=== PATIENT | female | born 1990 | race Caucasian/White ===

== ENCOUNTER → 2021-08-28 08:21 | Outpatient (BNVA) | payer SELFPAY | PROVIDERS: PCP Internal Medicine; Visit Provider Physician Assistant | DX: Z11.1 Encounter for screening for respiratory tuberculosis (principal) ==

== ENCOUNTER 2025-06-15 18:40 | Emergency (ER) | payer OTHER, SELFPAY ==
[2025-06-15 19:07] VITALS: BP 116/76; PULSE 86; RESP 16; TEMP 36.6; O2SAT 99; BMI 28.3
--- NOTE | 2025-06-15 19:08 | ED.NAVMDI ---
HPI - Nausea/Vomiting/Diarrhea General Chief complaint: Nausea/Vomiting/Diarrhea Stated complaint: vomiting, not feeling well Time Seen by Provider: 06/15/25 21:58 Source: patient, RN notes reviewed and old records reviewed Mode of arrival: ambulatory Limitations: no limitations History of Present Illness ED Provider: Shorty DAN Narrative: 34-year-old female presents for evaluation of abdominal pain, nausea vomiting and diarrhea. The patient reports her symptoms started about 2 weeks ago. She was seen at [facility] on 06/04/2025. She was ultimately told that she had a stomach virus and was discharged home. Her symptoms were better after IV fluids but returns. She denies any black or bloody stool. Denies any fevers, chills pain Denies any travel outside [place] pain She reports that she is not eating anything out of the ordinary pain Denies any previous abdominal surgery She reports that her pain is primarily left upper abdomen but does have pain diffusely Associated nausea: Yes Related Data Previous Rx's ?Medication ?Instructions ?Recorded nitrofurantoin 100 mg PO Q12H 5 days #10 caps 06/16/25 monohydrate/macrocrystals 100 mg capsule (Macrobid) Allergies Allergy/AdvReac Type Severity Reaction Status Date / Time latex (LATEX) Allergy Intermediate RASH Verified 06/15/25 19:09 Review of Systems Constitutional: Constitutional: Denies body ache(s), Denies chills, Denies fever(s) and Denies headache(s) Eyes: Eyes: Denies blurry vision ENT: Denies vertigo, Denies dizziness and Denies headache(s) Cardiovascular: Cardiovascular: Denies chest pain and Denies dyspnea on exertion Respiratory: Respiratory: Denies cough and Denies dyspnea on exertion Gastrointestinal: Gastrointestinal: Reports abdominal pain, Denies melena, Denies hematochezia, Reports diarrhea, Reports loose stools, Reports nausea and Reports vomiting Musculoskeletal: Musculoskeletal: Denies back pain Integumentary/Breasts: Skin/Breast: Denies rash Neurologic: Denies vertigo, Denies dizziness and Denies headache(s) [facility] Social History Social History Smoked in Last 30 Days: No Use of substances other than those prescribed or required for medical reasons: No Advance Directives: No Advance Directives Information Provided: No Do you have a plan to hurt others: No Plan Physical Exam Vital Signs: Vital Signs: Last Vital Signs Temp 97.5 F 06/15/25 22:30 Pulse 68 06/15/25 22:30 Resp 16 06/15/25 22:30 BP 112/79 06/15/25 22:30 Pulse Ox 97 06/15/25 22:30 O2 Del Method Room Air 06/15/25 22:30 BMI result Body Mass Index 28.3 Const: General: healthy appearing, comfortable, no acute distress, alert and awake Nutritional Appearance: well nourished Orientation/consciousness: patient oriented x3 HEENT: Head: Yes normocephalic and Yes atraumatic Eyes: Eyelids: Yes eyelids normal Conjunctivae: conjunctivae normal Sclerae: sclerae normal Corneas: corneas normal Pupils: Equal, round and reactive pupils present EOM: EOMs intact bilaterally Neck: Neck: Yes full ROM Resp: Effort & Inspection: normal respiratory effort, able to speak in complete sentences and not labored Cardio: Rate: regular rate Rhythm: regular rhythm GI: Inspection: No distended Palpation (GI): Soft to palpation, not firm, Tenderness to palpation present (GI) (Diffuse abdominal tenderness without rebound or guarding), no guarding and not rigid Skin: General skin exam: no rashes or lesions noted and elasticity normal Neuro: General: patient oriented x3 Cranial nerves: Yes CN's II-XII intact bilaterally, Yes Equal, round and reactive pupils present and Yes Bilaterally intact EOM present Cognition (Neuro): normal cognition Course Course Course Narrative: This is a Rapid Medical Exam performed in triage by Radha Shaw PA-C. Full HPI, ROS and PE to be performed by primary ED provider. 34-year-old female presenting to the ED c/o diffuse abdominal pain, nausea, vomiting, diarrhea x2 weeks with decreased p.o. intake. reports about 30 episodes nonbloody diarrhea. Denies recent antibiotics or travel PE: NAD, nontoxic appearing, abdomen is soft diffusely tender, no rebound or guarding Plan: Labs, UA, viral testing Reevaluation(s) Reevaluation #1: The patient is negative for C diff, she is hemodynamically stable and feels somewhat better after IV fluids and Protonix and Zofran. She is not vomiting. The patient will be discharged with Macrobid for UTI. No we will call her with any other abnormalities on the stool panel that has not run overnight. Additionally she will be discharged to follow up with GI Time: 01:09 Medications Administered Discontinued Medications Generic Name Dose Route Start Last Admin Trade Name Morena PRN Reason Stop Dose Admin Lactated Ringer's 1,000 mls @ 999 mls/hr 06/15/25 22:45 06/16/25 00:04 Lr IV 06/15/25 23:45 Infused .Q1H1M FORREST Infusion Ondansetron HCl 4 mg 06/15/25 22:42 06/15/25 22:53 Ondansetron Hcl 4 Mg/2 Ml Vial IVPUSH 06/15/25 22:43 4 mg ONCE ONE Administration Pantoprazole Sodium 40 mg 06/15/25 22:42 06/15/25 22:53 Pantoprazole Sodium 40 Mg/10 Ml Vial IVPUSH 06/15/25 22:43 40 mg ONCE ONE Administration Medical Decision Making Medical Decision Making [facility] Narrative: 34-year-old female presents for evaluation of abdominal pain, nausea vomiting diarrhea. Her symptoms have been waxing waning for the last 2 weeks. She denies any risk factors for C diff. She [place] any [place] [facility] Her vital signs are within normal limits. Her exam is reassuring. She does have some diffuse tenderness but without distention, rebound or guarding. I was able to review her workup at [facility] dated 06/04/2025 which did show entire colitis. No evidence of obstruction. The patient reports having had 30 episodes of diarrhea since last night. We will attempt to obtain a stool sample to send for evaluation[place] [id number] but otherwise her labs are quite reassuring. No electrolyte abnormalities. At the moment I do not see any indication to repeat CT imaging in his I doubt obstruction or surgical abdomen. We will treat her symptoms at any time with IV fluids, Zofran and Protonix Differential Diagnosis Differential Diagnoses: The differential diagnosis associated with the presentation includes Abdominal pain Gastroenteritis Colitis C diff colitis Campylobacter Lab Data [facility] Lab Attestation statement: I reviewed the patient's lab results. As above 06/15/25 20:47 06/15/25 20:47 Labs: Lab Results 06/15/25 06/15/25 06/16/25 Range/Units 20:47 22:37 00:07 WBC 12.4 H (4.8-10.8) X10*3/uL RBC 4.61 (4.20-5.50) X10*6/uL Hgb 13.9 (12.0-16.0) g/dl Hct 40.3 (37.0-47.0) % MCV 87.4 (80.0-98.0) fL MCH 30.2 (27.0-33.0) pg MCHC 34.5 (31.0-35.0) g/dl RDW 12.8 (11.0-16.0) % Plt Count 325 (160-400) X10*3/uL MPV 10.2 (9.4-12.3) fL Immature Gran % (Auto) 0.3 (0.0-0.4) % Neut % (Auto) 53.3 (45-73) % Lymph % (Auto) 26.4 (20-40) % [place] % (Auto) 6.8 (2-11) % Eos % (Auto) 12.9 H (0-4) % Baso % (Auto) 0.3 (0-2) % Lymph # (Auto) 3.3 (1.2-4.9) X10*3/uL [place] # (Auto) 0.8 (0.1-1.2) X10*3/uL Eos # (Auto) 1.6 H (0.0-0.4) X10*3/uL Baso # (Auto) 0.0 (0.0-0.2) X10*3/uL Abs Immat Gran (auto) 0.04 H (0.00-0.03) X10*3/uL Absolute Neuts (auto) 6.6 (2.0-8.3) x10*3/uL Absolute Nucleated RBC 0.000 (0.0-0.012) X10*3/uL Nucleated RBC % (auto) 0.0 (0.0-0.2) /100WBC Sodium 138 (135-145) mmol/L Potassium 3.5 (3.3-5.1) mmol/L Chloride 107 (96-108) mmol/L Carbon Dioxide 24 (22-29) mmol/L Anion Gap 11 L (12-20) BUN 10 (9-16) mg/dL Creatinine 0.68 (0.5-1.4) mg/dL Estim Creat Clear Calc 111.2 Estimated GFR > 60 Random Glucose 103 (60-115) mg/dL Calcium 9.2 (8.4-10.2) mg/dL Magnesium 2.0 (1.6-2.6) mg/dL Total Bilirubin 0.4 (0.0-1.0) mg/dL Direct Bilirubin 0.1 (0.0-0.5) mg/dL AST 24 (5-31) U/L ALT 33 H (0-31) U/L Alkaline Phosphatase 58 (39-117) U/L Total Protein 7.6 (6.5-8.0) g/dL Albumin 4.3 (3.5-5.0) g/dL Lipase 44 (8-78) U/L Beta HCG, Quant < 2 mIU/mL Urine Color Yellow Urine Appearance Clear Urine pH 5.5 (5.0-9.0) Ur Specific [place] 1.025 (1.005-1.025) Urine Protein Trace (Neg-Trace) mg/dL Urine Glucose (UA) Negative (Negative) mg/dL Urine Ketones Trace (Negative) mg/dL Urine Blood Trace H (Negative) Urine Nitrite Negative (Negative) Ur Leukocyte Esterase Moderate (2+) H (Negative) Urine RBC 3-5 H (0-2) /HPF Urine WBC 21-50 H (0-5) /HPF Ur Squamous Epith Cells 6-10 (0-2) /HPF Urine Bacteria 4+ (None Seen) Hyaline Casts 0-2 (0-2) /LPF Urine Test NEGATIVE (NEGATIVE) C. difficile Tox B Gene NEGATIVE (Negative) Influenza Type A (PCR) NEGATIVE (Negative) Influenza Type B (PCR) NEGATIVE (Negative) RSV RNA Qual (PCR) NEGATIVE (Negative) SARS-CoV-2 RNA (RT-PCR) NEGATIVE (Negative) Tests considered The following testing was considered but not selected: Consider CT scan of the abdomen pelvis Discharge Plan Discharge Clinical Impression: Diarrhea, Abdominal pain, UTI (urinary tract infection) Patient Disposition: Home, Self-Care Instructions: Urinary Tract Infection in Women (ED), Acute Diarrhea (ED) Additional Instructions: Given your workup in the ER today was reassuring. You did end up having a UTI. You were negative for C diff which has a tetanus infection that causes colitis pain However there was still additional stool studies pending pain We will call you if in his your positive. In the meantime hydrate well. You may use [id number] Imodium to help with further diarrhea. Follow up with the primary doctor and a referral was placed for GI Prescriptions: New nitrofurantoin monohyd/m-cryst [Macrobid] 100 mg capsule 100 mg PO Q12H 5 Days Qty: 10 0RF Rx Instructions: must administer with a meal/food Referrals: [facility] [Provider Group, Gastroenterology] Referral Note: diarrhea for 2 weeks Stand Alone Forms: Work/School Release Print Language: Greek
[2025-06-15 21:03] LABS: MANUAL DIFF FLAG NO
[2025-06-15 21:05] LABS: Hematocrit 40.3 % (37.0-47.0); Hemoglobin 13.9 g/dl (12.0-16.0); Imm Gran Abs Auto 0.04 X10*3/uL (0.00-0.03); Imm Gran Pct Auto 0.3 % (0.0-0.4); Lymphocytes Absolute Auto 3.3 X10*3/uL (1.2-4.9); Mean Corpuscular HGB Conc 34.5 g/dl (31.0-35.0); Mean Corpuscular Hemoglobin 30.2 pg (27.0-33.0); Mean Corpuscular Volume 87.4 fL (80.0-98.0); NRBC Abs Auto 0.000 X10*3/uL (0.0-0.012); NRBC Pct Auto 0.0 /100WBC (0.0-0.2); Platelet Count 325 X10*3/uL (160-400); Red Blood Count 4.61 X10*6/uL (4.20-5.50); White Blood Count 12.4 X10*3/uL (4.8-10.8)
--- OUTSIDE RECORDS SUMMARY | 2025-06-15 21:06 | XMS_ITS | Clinical Summary ---
Author Organization 175 [facility] Address [address] [place] [address] Phone Care Team Providers Care Machine Adjuster Helper Name Role Phone Dasha Araujo MD Primary Care Provider [phone] Allergies Active Allergy Reactions Criticality Noted Date Comments Latex 07/04/2020 Medications psyllium (METAMUCIL) 3.4 gram packetIndications :Constipation, unspecified constipation type Take 1 packet by mouth 1 (one) time each day. 30 packet 3 5 Active SUMAtriptan (IMITREX) 25 mg tabletIndications :Other migraine with status migrainosus, intractable Take 1 tablet (25 mg total) by mouth 1 (one) time if needed for migraine. May repeat dose once in 2 hours if no relief. Do not exceed 2 doses in 24 hours. 27 tablet 3 5 11/23/19 26 Active ondansetron (ZOFRAN) 4 mg tabletIndications :Nausea Take 1 tablet (4 mg total) by mouth every 8 (eight) hours if needed for nausea or vomiting. 20 tablet 3 5 Active methocarbamoL (ROBAXIN) 750 mg tablet Take 1 tablet (750 mg total) by mouth 4 (four) times a day for 10 days. 20 each 5 Active loratadine (CLARITIN) 10 mg tabletIndications :Seasonal allergies Take 1 tablet (10 mg total) by mouth 1 (one) time each day if needed for allergies. 30 each 2 5 07/12/19 26 Active albuterol HFA (Ventolin HFA) 90 mcg/actuation inhalerIndication s:Moderate persistent asthma, unspecified whether complicated Inhale 2 puffs by mouth every 4 (four) hours if needed for wheezing or shortness of breath. 8 g 5 5 04/13/20 26 Active cholecalciferol (Vitamin D3) 50 mcg (2,000 unit) tablet Take 1 tablet (2,000 Units total) by mouth 1 (one) time each day. 90 tablet 2 5 Active semaglutide (Wegovy) 0.5 mg/0.5 mL injection pen Inject 0.5 mg under the skin every 7 (seven) days. 2 mL 1 5 Active Active Problems Problem Noted Date Diagnosed Date PCOS (polycystic ovarian syndrome) 07/06/2020 Overview (07/10/2024): LH > FSH irreg menses Also confirmed with ultrasound Encounters Date Type Department Care Team Description 04/13/2025 10:30 AM EDT Office Visit Internal Medicine - [address] [place] [phone] Lon Delacruz NP BMI 30.0-30.9,adult (Primary Dx); Moderate obstructive sleep apnea; PCOS (polycystic ovarian syndrome); Seasonal allergies; Moderate persistent asthma, unspecified whether complicated; Healthcare maintenance 04/13/2025 Results Follow-Up Internal Medicine - [address] [place] [address] Dasha Araujo MD from Last 3 Months Surgical History Surgery Date Site/Laterality Comments OTHER SURGICAL HISTORY PROCEDURE: DENIES PREVIOUS SURGERY Medical History Medical History Date Comments History of PCOS DX:History of PC OS; COMMENT: PER PT REPORT Lumbar herniated disc 2016 DX:Lumbar herniated disc Mild intermittent asthma, uncomplicated DX:Mild intermittent asthma, uncomplicated Family History Medical History Relation Name Comments Prostate cancer Maternal Grandfather No Known Problems Mother Breast cancer Mother's side Thyroid disease Sister Relation Name Status Comments Father Alive Maternal Grandfather Mother Alive Mother's side Sister Alive Social History Tobacco Use Types Packs/Day Years Used Date Smoking Tobacco: Never Smokeless Tobacco: Never Tobacco Cessation:Counseling Given: Not Answered Alcohol Use Standard Drinks/Week Comments No 0 (1 standard drink = 0.6 oz pur e alcohol) Housing Instability Answer Date Recorde d Are you worried that in the next 2 months you may not have stable housing? No 11/15/2024 Food Access & Nutrition Answer Date Rec orded Do you have access to a vari ety of food including fruits and vegetables? Yes 11/15/2024 Access to Healthcare Answer Date Record ed Within the last 3 months, ho w many times did you visit the emergency department for your medical care? 1 11/15/2024 Health Literacy Answer Date Recorded How often do you need to hav e someone help you when you read instructions, pamphlets, or other written material from your doctor or pharmacy? Never 11/15/2024 Caregiver: How often do you need to have someone help you when you read instructions, pamphlets, or other written material from your doctor or pharmacy? Not on file 11/15/2024 Financial Risk Answer Date Recorded How hard is it for you to pa y for the very basics like food, housing, medical care, and air conditioning / heating? Not very hard 11/15/2024 Transportation Answer Date Recorded Has the lack of transportati on kept you from meetings, work, or from getting things needed for daily living? No Has the lack of transportati on kept you from medical appointments or from getting medications? No 11/15/2024 Social Isolation Answer Date Recorded How often do you feel lonely or isolated from those around you? Sometimes 11/15/2024 Food Risk Answer Date Recorded Within the past 12 months we worried whether our food would run out before we got money to buy more. Never true 11/15/2024 Within the past 12 months th e food we bought just didn't last and we didn't have money to get more. Never true 11/15/2024 Dependent Care Answer Date Recorded Do you need help finding or paying for care for your loved ones. For example, director child development center or elderly care for an older adult? No 11/15/2024 Education Answer Date Recorded Do you think completing more education or training, like finishing a GED, going to college, or learning a trade, would be helpful for you? Yes 11/15/2024 Employment and Income Answer Date Recor ded During the last four weeks, have you been actively looking for work? No 11/15/2024 Living Situation Answer Date Recorded What is your living situation? Unrecognized valu e 11/15/2024 Comments No Sex and Gender Information Value Date Recorded Sex Assigned at Female 12/08/2024 1:17 AM EDT Legal Sex Female 5:42 AM EST Gender Identity Female 12/08/2024 1:17 AM EDT Sexual Orientation Lesbian or [place] 12/08/2024 1: 17 AM EDT Last Filed Vital Signs Vital Sign Reading Time Taken Comments Blood Pressure 110/80 04/13/2025 9:38 AM EDT Pulse 83 04/13/2025 9:38 AM EDT Temperature 36.4 C (97.6 F) 04/13/2025 9:38 AM EDT Respiratory Rate 18 01/24/2025 1:37 PM EDT Oxygen Saturation 97% 04/13/2025 9:38 AM EDT Inhaled Oxygen Concentration - - Weight 77 kg (169 lb 12.8 oz) 04/13/2025 9:38 AM EDT Height 160 cm (5' 3 ) 04/13/2025 9:38 AM EDT Body Mass Index 30.08 04/13/2025 9:38 AM EDT Plan of Treatment Upcoming Encounters Date Type Department Care Team (Late st Contact Info) Description 01/25/2026 1:30 PM EDT Office Visit Internal Medicine - [address] [place] [address] Dasha Araujo MD [address] [place] [phone] Health Maintenance Due Date Last Done Comments Pneumococcal Vaccine: Pediatrics (0 to 5 Years) and At-Risk Patients (6 to 49 Years) (1 of 2 - PCV) 2009 DTaP,Tdap,and Td Vaccines (7 - Td or Tdap) 08/01/2019 08/01/2009, 08/21/1994, 02/13/1993, Additional history exists COVID-19 Vaccine ( - season) 2025 08/25/2021, 07/24/2020, 07/03/2020 Influenza Vaccine (#1) 2025 3, 03/26/2022, 05/06/2021, Additional history exists Social Influencers of Health Screening 11/15/2025 11/15/2024 Cervical Cancer Screening: HPV 12/15/2028 12/16/2023 Cholesterol Screening (Lipid Panel) 04/13/2030 04/13/2025, 01/17/2024, 01/17/2024 RSV Immunization Adult Patients (1 - 1-dose 75+ series) 2065 HIB Vaccines Completed 02/13/1993, 03/29, 1990 IPV Vaccines Completed 08/21/1994, 01/26, 03/06/1991, Additional history exists MMR Vaccines Completed 02/08/2008, 07/30, 02/13/1993 Varicella Vaccines Completed 07/30/2009, 0 02/08/2008, 08/21/1994, Additional history exists HPV Vaccines Completed 02/10/2010, 09/2009, 02/06/2008 Hepatitis A Vaccines Aged Out 05/13/2020 No long er eligible based on patient's age to complete this topic HIV Screening Completed 01/17/2024 Hepatitis C Screening Completed 01/17/2024 Depression Screening Completed 11/15/2024 Hepatitis B Vaccines Completed 03/12/2025, 11/09/2024, 06/14/2024, Additional history exists Meningococcal ACWY Vaccine Aged Out N o longer eligible based on patient's age to complete this topic Meningococcal B Vaccine Aged Out No l onger eligible based on patient's age to complete this topic RSV Immunization Patients Under 20 months Aged Out No longer eligible based on patient's age to complete this topic Procedures Procedure Name Priority Date/Time Associated Diagnosis Comments COMPREHENSIVE METABOLIC PANEL Routine 04/13/2025 9:06 AM EDT PCOS (polycystic ovarian syndrome) BMI 30.0-30.9,adult Moderate obstructive sleep apnea Healthcare maintenance LIPID PANEL WITH REFLEX TO DIRECT LDL Routine 04/13/2025 9:06 AM EDT PCOS (polycystic ovarian syndrome) BMI 30.0-30.9,adult Moderate obstructive sleep apnea Healthcare maintenance COMPLETE BLOOD COUNT Routine 04/13/2025 9:06 AM EDT PCOS (polycystic ovarian syndrome) BMI 30.0-30.9,adult Moderate obstructive sleep apnea Healthcare maintenance VITAMIN D 25 HYDROXY Routine 04/13/2025 9:06 AM EDT PCOS (polycystic ovarian syndrome) BMI 30.0-30.9,adult Moderate obstructive sleep apnea Healthcare maintenance HEPATITIS C SCREENING Routine 01/17/2024 HPV Routine 12/16/2023 from Last 3 Months or Most Recently Relevant to Health Maintenance Results * (ABNORMAL) Lipid panel with reflex to direct LDL (04/13/2025 9:06 AM EDT) Cholesterol 167 0 - 200 mg/dL LAB CHEMISTRY METHOD 04/13/2025 10:59 AM [facility] Triglycerides 206(H) 0 - 150 mg/dL LAB CHEMISTRY METHOD 04/13/2025 10:59 AM [facility] HDL 41 >=40 mg/dL LAB CHEMISTRY METHOD 04/13/2025 10:59 AM [facility] LDL Calculated 85 0 - 100 mg/dL LAB CHEMISTRY METHOD 04/13/2025 10:59 AM [facility] Comment:Estimated LDL Calcul ated using equation: Total cholesterol - HDL cholesterol - (Triglycerides/5) VLDL Cholesterol Jarad 41.2 mg/dL LAB CHEMISTRY METHOD 04/13/2025 10:59 AM [facility] Non HDL Chol. (LDL+VLDL) 126 <145 mg/dL LAB CHEMISTRY METHOD 04/13/2025 10:59 AM [facility] Chol/HDL Ratio 4.1 0.0 - 4.4 LAB CHEMISTRY METHOD 04/13/2025 10:59 AM [facility] Blood Venous blood specimen / Unknown Venipuncture / Unknown 04/13/2025 9:06 AM EDT 04/13/2025 9:06 AM EDT us Dasha Araujo MD LAB BLOOD ORDERABLES Final Res ult Performing Organization Address City/[facility]/ZIP Co de Phone Number [facility] [address] [place] [address], [place] [phone] * (ABNORMAL) Vitamin D 25 hydroxy (04/13/2025 9:06 AM EDT) [facility] Vit D, 25-Hydroxy 25.3(L) 30.0 - 80.0 ng/mL LAB CHEMISTRY METHOD 04/13/2025 11:47 AM EDT [facility] Blood Venous blood specimen / Unknown Venipuncture / Unknown 04/13/2025 9:06 AM EDT 04/13/2025 9:06 AM EDT us Dasha Araujo MD LAB BLOOD ORDERABLES Final Res ult Performing Organization Address City/[facility]/ZIP Co de Phone Number [facility] [address] [place] [address], [place] [phone] * Complete blood count (04/13/2025 9:06 AM EDT) [facility] WBC 8.4 4.8 - 10.8 K/mcL LAB HEMETOLOGY METHOD 04/13/2025 10:29 AM EDT [facility] RBC 4.50 3.80 - 4.80 M/mcL LAB HEMETOLOGY METHOD 04/13/2025 10:29 AM EDT [facility] Hemoglobin 13.2 11.5 - 16.0 g/dL LAB HEMETOLOGY METHOD 04/13/2025 10:29 AM EDT [facility] Hematocrit 39.8 35.0 - 47.0 % LAB HEMETOLOGY METHOD 04/13/2025 10:29 AM EDT [facility] MCV 89.0 79.0 - 98.0 FL LAB HEMETOLOGY METHOD 04/13/2025 10:29 AM EDT [facility] MCH 29.5 27.0 - 32.0 pcg LAB HEMETOLOGY METHOD 04/13/2025 10:29 AM EDT [facility] MCHC 33.2 32.0 - 37.0 g/dL LAB HEMETOLOGY METHOD 04/13/2025 10:29 AM EDT [facility] RDW 12.1 11.0 - 15.0 % LAB HEMETOLOGY METHOD 04/13/2025 10:29 AM EDT [facility] Platelets 305 130 - 400 K/mcL LAB HEMETOLOGY METHOD 04/13/2025 10:29 AM EDT [facility] MPV 11.0 7.0 - 11.0 FL LAB HEMETOLOGY METHOD 04/13/2025 10:29 AM EDT [facility] NRBC 0.0 <1.0 % LAB HEMETOLOGY METHOD 04/13/2025 10:29 AM EDT [facility] NRBC Absolute 0.00 <0.10 K/mcL LAB HEMETOLOGY METHOD 04/13/2025 10:29 AM EDT [facility] Blood Venous blood specimen / Unknown Venipuncture / Unknown 04/13/2025 9:06 AM EDT 04/13/2025 9:06 AM EDT us Dasha Araujo MD LAB BLOOD ORDERABLES Final Res ult [facility] [address] [place] [address], * Comprehensive metabolic panel (04/13/2025 9:06 AM EDT) Sodium 137 133 - 145 mmol/L LAB CHEMISTRY METHOD 04/13/2025 10:59 AM EDT [facility] Potassium 4.0 3.5 - 5.5 mmol/L LAB CHEMISTRY METHOD 04/13/2025 10:59 AM [facility] Chloride 104 96 - 110 mmol/L LAB CHEMISTRY METHOD 04/13/2025 10:59 AM [facility] CO2 30 21 - 32 mmol/L LAB CHEMISTRY METHOD 04/13/2025 10:59 AM [facility] Anion Gap 3 3 - 11 LAB CHEMISTRY METHOD 04/13/2025 10:59 AM [facility] Glucose 97 70 - 100 mg/dL LAB CHEMISTRY METHOD 04/13/2025 10:59 AM [facility] BUN 12 5 - 25 mg/dL LAB CHEMISTRY METHOD 04/13/2025 10:59 AM [facility] Creatinine 0.68 0.50 - 1.10 mg/dL LAB CHEMISTRY METHOD 04/13/2025 10:59 AM [facility] eGFR 117 >=60 mL/min/1. 73m2 LAB CHEMISTRY METHOD 04/13/2025 10:59 AM [facility] Comment:Calculation based on the Chronic Kidney Disease Epidemiology Collaboration (CKD-EPI) equation refit without adjustment for race. BUN/Creatinine Ratio 17.6 LAB CHEMISTRY METHOD 04/13/2025 10:59 AM [facility] Calcium 9.1 8.5 - 10.5 mg/dL LAB CHEMISTRY METHOD 04/13/2025 10:59 AM [facility] AST (SGOT) 17 10 - 42 unit/L LAB CHEMISTRY METHOD 04/13/2025 10:59 AM [facility] ALT (SGPT) 31 10 - 60 unit/L LAB CHEMISTRY METHOD 04/13/2025 10:59 AM [facility] Alkaline Phosphatase 62 42 - 121 unit/L LAB CHEMISTRY METHOD 04/13/2025 10:59 AM [facility] Total Protein 7.6 6.0 - 8.0 g/dL LAB CHEMISTRY METHOD 04/13/2025 10:59 AM EDT [facility] Albumin 3.8 3.2 - 5.0 g/dL LAB CHEMISTRY METHOD 04/13/2025 10:59 AM EDT [facility] Total Bilirubin 0.2 0.0 - 1.4 mg/dL LAB CHEMISTRY METHOD 04/13/2025 10:59 AM EDT [facility] Blood Venous blood specimen / Unknown Venipuncture / Unknown 04/13/2025 9:06 AM EDT 04/13/2025 9:06 AM EDT Dasha Araujo MD LAB BLOOD ORDERABLES Final Res ult [facility] [address] [place] [address], * Hepatitis C Screening (01/17/2024) [facility] Hepatitis C Screening Abstracted Historical Provider HEALTH MAINTENANCE Final Result * Cervical Cancer Screening: HPV (12/16/2023) [facility] Cervical Cancer Screening: HPV negative,a bstracted Historical Provider HEALTH MAINTENANCE Final Result from Last 3 Months or Most Recently Relevant to Health Maintenance Insurance [facility] Care Teams Machine Adjuster Helper Relationship Specialty Start Date End Date Dasha Araujo MD [address] [place] [phone] PCP - General Internal Medicine 11/01/24
--- OUTSIDE RECORDS SUMMARY | 2025-06-15 21:06 | XMS_ITS | Encounter Summary ---
Author Organization [facility] Address [address] [place] [address] Care Team Providers Care Underground Production Foreperson Name Role Phone Dasha Araujo MD Primary Care Provider [phone] Encounter Details Date Type Department Care Team ([facility] st Contact Info) Description 04/13/2025 Results Follow-Up Internal Medicine - [place] [address] [place] [phone] Dasha Araujo MD [address] [place] [phone] Social History Tobacco Use Types Packs/Day Years Used Date Smoking Tobacco: Never Smokeless Tobacco: Never Alcohol Use Standard Drinks/Week Comments No 0 [...] Record ed Within the last 3 months, narayan uriarte many times did you visit the emergency [...] care for your loved ones. For example, child development director or elderly care for an older adult? [...] or [place] 12/08/2024 1: 17 AM EDT documented as of this encounter Functional Status * Are you deaf or do you have serious difficulty hearing? Answer Date of Assessment Author No 11/13/2024 1:45 AM EDT Obed Klein RN * Are you blind or do you have serious difficulty seeing, even when wearing glasses? Answer Date of Assessment Author No 11/13/2024 1:45 AM EDT Obed Klein RN * Do you have serious difficulty walking or climbing stairs? Answer Date of Assessment Author No 11/13/2024 1:45 AM RICHT Obed Klein RN * Do you have serious difficulty dressing or bathing? Answer Date of Assessment Author No 11/13/2024 1:45 AM EDT Obed Klein RN * Because of a physical, mental, or emotional condition, do you have serious difficulty doing errandsalone such as visiting the doctor? Answer Date of Assessment Author No 11/13/2024 1:45 AM EDT Obed Klein RN documented as of this encounter Mental Status * Because of a physical, mental, or emotional condition, do you have serious difficulty concentrating, remembering, or making decisions? (5 years old or older) Answer Entry Date Author No 11/13/2024 1:45 AM RICHT Obed Klein RN documented in this encounter Ordered Prescriptions Prescription Sig Dispense Quantity Refills Last Filled Start Date End Date cholecalciferol (Vitamin D3) 50 mcg (2,000 unit) tablet Take 1 tablet (2,000 Units total) by mouth 1 (one) time each day. 90 tablet 2 04/13/2025 documented in this encounter Plan of Treatment Upcoming Encounters Date Type Department Care Team (Late st Contact Info) Description 01/25/2026 1:30 PM EDT Office Visit Internal Medicine - [place] [address] [facility] [address] [place] [phone] Dasha Araujo MD [address] [place] [phone] documented as of this encounter Visit Diagnoses Not on filedocumented in this encounter Additional Health Concerns Assessment Noted Time PHQ-9 Depression Total Score: 9 11/16/19 9:16 PM EDT documented as of this encounter Care Teams Underground Production Foreperson Relationship Specialty Start Date End Date Dasha Araujo MD [address] [facility] [address] [place] [phone] PCP - General Internal Medicine 11/01/24 documented as of this encounter
--- OUTSIDE RECORDS SUMMARY | 2025-06-15 21:06 | XMS_ITS | Encounter Summary ---
Author Organization [facility] Prior to 04/28/2024 Address [address] [place] [address] Care Team Providers Care Design Chief Name Role Phone Dasha Araujo MD Primary Care Provider [phone] Reason for Visit * Reason Onset Date Comments APPOINTMENT 09/02/2020 Encounter Details Date Type Department Care Team Description 09/02/2020 Telephone Physiatry - [place] [address] [place] [address] Neville Dinh PA-C APPOINTMENT Social History Tobacco Use Types Packs/Day Years Used Date Smoking Tobacco: Never Smokeless Tobacco: Never Alcohol Use Standard Drinks/Week Comments No 0 (1 standard drink = 0.6 oz pur e alcohol) Alcohol Habits Answer Date Recorded How often do you have a drink containing alcohol ? Never 07/04/2020 How many drinks containing a lcohol do you have on a typical day when you are drinking? Not asked How often do you have six or more drinks on one occasion? Not asked Intimate Partner Violence Answer Date R ecorded Within the last year, have y ou been afraid of your partner or ex-partner? No 07/04/2020 Within the last year, have y ou been humiliated or emotionally abused in other ways by your partner or ex-partner? No Within the last year, have y ou been kicked, hit, slapped, or otherwise physically hurt by your partner or ex-partner? No 07/04/2020 Within the last year, have y ou been raped or forced to have any kind of sexual activity by your partner or ex-partner? No 07/04/2020 Sex Assigned at Date Recorded Female 11/06/2021 11:01 AM EDT documented as of this encounter Miscellaneous Notes * Telephone Encounter - Maria E Tyron - 09/02/2020 10:14 AM EST Patient is referred to: physiatry. Reason for referral: neck pain, lumbar pain history of corticosteroid injections FYI Patient no showed there appointment with Neville Dinh on 08/28/20. We left two messages to rescheduleand no response from the patient. documented in this encounter Plan of Treatment Not on file documented as of this encounter Visit Diagnoses Not on filedocumented in this encounter Care Teams Design Chief Relationship Specialty Start Date End Date Dasha Araujo MD PCP - General Internal Medicine 07/17/20 documented as of this encounter
--- OUTSIDE RECORDS SUMMARY | 2025-06-15 21:06 | XMS_ITS | Encounter Summary ---
Author Organization [email or web address] [facility] Prior to 04/28/2024 Address [address] [place] [address] Care Team Providers Care Global Ceo Name Role Phone Dasha Araujo MD Primary Care Provider [phone] Reason for Visit * Reason Onset Date Comments refill request 07/23/2022 Appt cancelation Encounter Details Date Type Department Care Team Description 07/23/2022 Telephone Pulmonology [facility] [address] [facility] [address] [place] [phone] Dasha Araujo MD [address] [place] [phone] refill request (Appt cancelation) Social History Tobacco Use Types Packs/Day Years [...] encounter Miscellaneous Notes * Telephone Encounter - Aida Morris - 07/23/2022 1:40 PM EST Called patient about upcoming appointment for tomorrow that is going to be cancel, she cuarently Doesn't have any active insurace, No answer left voicemail to call back. documented in this encounter Plan of Treatment Not on file documented as of this encounter Visit Diagnoses Not on filedocumented in this encounter Care Teams Global Ceo Relationship Specialty Start Date End Date Dasha Araujo MD PCP - General Internal Medicine 07/17/20 documented as of this encounter
[2025-06-15 21:29] LABS: Anion Gap 11 (12-20); Blood Urea Nitrogen 10 mg/dL (9-16); Calcium 9.2 mg/dL (8.4-10.2); Carbon Dioxide 24 mmol/L (22-29); Chloride 107 mmol/L (96-108); Creatinine Clr Calc Pharmacy 111.2; Estimated Glomerular Filt Rate > 60; Magnesium 2.0 mg/dL (1.6-2.6); Potassium 3.5 mmol/L (3.3-5.1); Sodium 138 mmol/L (135-145)
[2025-06-15 21:30] LABS: Alanine Aminotransferase 33 U/L (0-31); Albumin Level 4.3 g/dL (3.5-5.0); Aspartate Amino Transferase 24 U/L (5-31); Lipase 44 U/L (8-78); Total Protein 7.6 g/dL (6.5-8.0)
[2025-06-15 21:34] LABS: Resp Syncy Virus RNA Qual PCR NEGATIVE (Negative); SARS COV2 PCR INHOUSE NEGATIVE (Negative)
[2025-06-15 21:48] LABS: Alkaline Phosphatase 58 U/L (39-117)
[2025-06-15 22:30] VITALS: BP 112/79; PULSE 68; RESP 16; TEMP 36.4; O2SAT 97
[2025-06-15 22:52] LABS: Appearance Urine Clear; Glucose Urine UA Negative (Negative); PH 5.5 (5.0-9.0); Specific Gravity - Urine 1.025 (1.005-1.025); UMIC TRIGGER UACC YES
[2025-06-15] MEDS: Lactated Ringers 1,000 ML 999 ML IV (22:53)
[2025-06-15 22:54] LABS: UPreg QC Valid YES
[2025-06-15 22:55] LABS: UACC Culture Trigger YES
--- NOTE | 2025-06-15 23:30 | PC.NURSE ---
assumed care of patient, patient in hallway bed, IVF infusing, NAD
[2025-06-16 01:07] LABS: CDiff Gene PCR NEGATIVE (Negative)
[2025-06-16 01:33] VITALS: BP 108/63; PULSE 84; RESP 16; TEMP 36.2; O2SAT 98
[2025-06-16 01:34] VITALS: BP 108/63; PULSE 84; RESP 16; TEMP 36.2; O2SAT 98
[2025-06-16 10:30] LABS: E. coli EAEC Not Detected (Not Detect.); E. coli EPEC Not Detected (Not Detect.); E. coli ETEC Not Detected (Not Detect.); E. coli STEC Not Detected (Not Detect.); Shigella sp./EIEC Not Detected (Not Detect.)
== END 2025-06-16 01:34 | disposition home or self-care (01) ==
PROVIDERS: Physician Assistant; Emergency Provider Emergency Medicine Emergency Medical Services
DX: N39.0 Urinary tract infection, site not specified (principal); R19.7 Diarrhea, unspecified; R10.9 Unspecified abdominal pain
CPT/HCPCS: 36415; 80048; 80076; 81001; 81025; 83690; 83735; 84702; 85025; 87086; 87493; 87507; 87637; 96361; 96374; 96375; 99284; J2405; J2470; J7120